=== PATIENT | female | born 1965 | race African-American/Black ===

== ENCOUNTER 2023-06-15 23:14 | Emergency (ER) | payer MEDICAID ==
[~2023-06-15] VITALS: Ht 160 cm; Wt 68.5 kg
[2023-06-15 23:40] VITALS: O2SAT 99
[2023-06-16] MEDS ORDERED: CEPH500T MT (00:52)
[2023-06-16 01:00] VITALS: BP 173/106; PULSE 103; RESP 20; TEMP 98.1
== END 2023-06-16 01:05 | disposition home or self-care (01) ==
LOC: ER 23:14
DX: Z53.21 Procedure and treatment not carried out due to patient leaving prior to being seen by health care provider (principal)
CPT/HCPCS: 99281

== ENCOUNTER 2025-03-14 14:19 | Emergency (ER) | payer SELFPAY ==
[~2025-03-14] VITALS: Ht 160 cm; Wt 66.7 kg
[~2025-03-14 14:19] MED LIST: CEPH500T MT
[2025-03-14 14:21] VITALS: O2SAT 98
[2025-03-14 15:49] LABS: BASOPHILS % 1.3 % (0.0-2.0); EOSINOPHILS % 3.3 % (0.0-5.0); HEMATOCRIT. 40.3 % (36.0-48.0); HEMOGLOBIN. 13.5 g/dL (12.0-16.0); LYMPHOCYTES % 31.5 % (20.0-50.0); MEAN CORPUSCULAR HEMOGLOBIN 30.8 pg (28.0-32.0); MEAN CORPUSCULAR HGB CONC 33.5 g/dL (31.0-37.0); MEAN CORPUSCULAR VOLUME 91.9 fL (81.0-99.0); MEAN PLATELET VOLUME 8.3 fl (7.4-10.4); NEUTROPHILS % 49.9 % (40.0-76.0); PLATELET 282 x1000/uL (130-400); RED BLOOD CELL COUNT 4.39 mill/uL (4.2-5.4); RED CELL DISTRIBUTION WIDTH 15.3 % (11.6-14.6); WHITE BLOOD COUNT 5.7 x1000/uL (4.5-11.0)
[2025-03-14] MEDS: KETOROLAC 15MG/ML VIAL IV ONE (15:53)
[2025-03-14 15:59] LABS: CHLORIDE 111 mEq/L (98-107); POTASSIUM 3.7 mEq/L (3.5-5.1); SODIUM 143 mEq/L (136-145)
[2025-03-14 16:00] LABS: CALCIUM 9.5 mg/dL (8.7-10.4); CARBON DIOXIDE 24 mEq/L (21-32); PROTHROMBIN TIME 10.3 sec (9.6-11.0)
[2025-03-14 16:05] LABS: GLUCOSE 91 mg/dL (70-105); UREA NITROGEN BLOOD 14 mg/dL (9-23)
[2025-03-14] MEDS: SODIUM CHLORIDE 0.9% 1,000 ML IV ONE (16:05)
[2025-03-14] MEDS: ONDANSETRON HCL 4MG/2ML INJ IV STA (16:05)
[2025-03-14 16:07] LABS: ALANINE AMINOTRANSFERASE 15 IU/L (10-49); ALBUMIN 4.4 g/dL (3.2-4.8); ASPARTATE AMINOTRANSFERASE 21 IU/L (<34); BILIRUBIN DIRECT < 0.1 mg/dL (<=3.0); BILIRUBIN TOTAL 0.3 mg/dL (0.1-1.0); PROTEIN TOTAL 7.3 g/dL (6.0-8.3)
[2025-03-14 18:02] VITALS: BP 174/89; PULSE 98; RESP 17; TEMP 37.1; O2SAT 98
== END 2025-03-14 18:22 | disposition home or self-care (01) ==
LOC: ER 14:19
DX: R19.7 Diarrhea, unspecified (principal); J45.909 Unspecified asthma, uncomplicated; I10 Essential (primary) hypertension; F17.200 Nicotine dependence, unspecified, uncomplicated; Z88.0 Allergy status to penicillin; Z98.890 Other specified postprocedural states
CPT/HCPCS: 99285; 74176; 96374; 96375; 80076; 80048; 85025; 85610; 36415; J1885; J2405; J7030